=== PATIENT | male | born 1970 | race Caucasian/White ===

== ENCOUNTER 2019-02-11 11:53 | Day surgery (SDC) | payer OTHER ==
[2019-02-11] MEDS ORDERED: LIDOCAINE 4% SOLUTION 50 ML BTL (14:55)
== END 2019-02-11 16:18 | disposition home or self-care (01) ==
LOC: GIL 11:53
DX: K92.1 Melena (principal); Z12.11 Encounter for screening for malignant neoplasm of colon (principal); Z53.8 Procedure and treatment not carried out for other reasons
CPT/HCPCS: 43235; Z7610